=== PATIENT | male | born 1980 | race Caucasian/White ===

== ENCOUNTER 2023-04-18 10:03 | Outpatient (REF) | payer OTHER, SELFPAY ==
[2023-04-18 11:47] LABS: SARS-CoV-2 Ag NEGATIVE (NEGATIVE)
[2023-04-18 16:03] LABS: SARS-CoV-2 NAA INCONCLUSIVE (NOT DETECTE)
== END 2023-04-18 10:04 | disposition home or self-care (01) ==
LOC: LAB 10:03
PROVIDERS: PCP Family Medicine; Visit Provider Family Medicine
DX: J21.9 Acute bronchiolitis, unspecified (principal)
CPT/HCPCS: 87635; 87811